=== PATIENT | male | born 1955 | race Caucasian/White ===

== ENCOUNTER → 2016-09-19 | Outpatient (CLI) | payer BC ==
--- NOTE | 2016-09-19 13:37 | XR ---
EXAMINATION TYPE: XR abdomen complete w decub DATE OF EXAM ORDERED: 09/19/2016 12:59 PM HISTORY: K59.0 Constipation. COMPARISON: None. FINDINGS: The abdominal gas pattern is within normal limits. There is no evidence of obstruction or free air. There are numerous phleboliths within the pelvis. There is a modest amount of stool within the right side of the colon. IMPRESSION: NO ACUTE INTRA-ABDOMINAL ABNORMALITY.
--- NOTE | 2016-09-19 13:38 | XR ---
EXAMINATION TYPE: XR chest 2V DATE OF EXAM: 09/19/2016 12:59 PM HISTORY: J44.9 COPD. REFERENCE: NONE. FINDINGS: There are innumerable tiny lung nodules on the right. These are quite dense and likely repr esent granulomas. The left lung is clear. Pleural spaces are clear. Heart size is within normal limit s. IMPRESSION: MULTIPLE RIGHT-SIDED PULMONARY NODULES. THESE LIKELY REPRESENTING GRANULOMAS. A CT SCAN OF THE CHEST WOULD BE SUGGESTED.
== END | disposition home or self-care (01) ==
LOC: EDSEX 12:20 → RADXRMAIN 12:20
PROVIDERS: ATTEND Family Medicine
DX: J91.8 Pleural effusion in other conditions classified elsewhere (principal); K59.00 Constipation, unspecified; J44.9 Chronic obstructive pulmonary disease, unspecified
CPT/HCPCS: 71020; 74020

== ENCOUNTER → 2016-10-25 | Outpatient (CLI) | payer BC ==
[~2016-10-25] MED LIST: REGADENOSON 0.4 MG/5 ML SYRINGE IV ONE
--- NOTE | 2016-10-25 12:01 | NM ---
EXAMINATION TYPE: NM stress lexiscan cardiolite DATE OF EXAM: 10/25/2016 11:53 AM COMPARISON: NONE HISTORY: Chest pain TECHNIQUE: After the intravenous administration of 9.52 mCi Tc 99m Sestamibi - Cardiolite resting SP ECT images acquired 45 minutes post injection. The patient received 0.4mg Lexiscan, 26.6 mCi Tc 99m Sestamibi - Stress images obtained [address] injection FINDINGS: Review of stress and rest SPECT images demonstrates no distinct perfusion abnormality. Gated analysi s shows normal wall motion with an estimated left ventricular ejection fraction of 63 %. IMPRESSION: No scintigraphic evidence for reversible ischemia.
--- NOTE | 2016-10-25 12:04 | EST ---
DATE OF SERVICE: 10/25/2016 AGE: 61Y SEX: M HT: 66" WT: 189 lbs. Lexiscan Cardiolite Stress Test *Heart Rate Blood Pressure *Rest: 76 Rest: 129/89 * *Max. Achieved: 83 Maximum BP: 130/87 85% PMHR: 136 100% PMHR: 160 *METS: - INDICATIONS: Abnormal ST. MEDICATIONS: Vitamin D, losartan, Chantix, aspirin, Toprol, fenofibrate. Patient came for a Cardiolite scan, unfortunately was not able to achieve the target heart rate. At that point he is converted him to Lexiscan and EKG shows normal sinus rhythm, normal ST-T waves but by the time we finished the stress test, patient does have [address] segment depression in the inferolateral leads. At that point, patient resumed Lexiscan and serial EKGs were done without any further changes in the ST segment noted without any symptoms. Patient completed the test without any symptoms. IMPRESSION: 1. Rhythm is sinus initially and Cardiolite stress test, patient had [address] segment depression without reaching the target heart rate and ( ) the Lexiscan without any further changes in ST segments and no symptoms reported. 2. Negative Lexiscan Cardiolite study. 3. With the ST segment changes as mentioned above without any changes. 4. Nuclear scintigrams to follow from Radiology Department.
== END ==
LOC: RADNMMAIN 08:47
PROVIDERS: ATTEND Family Medicine
DX: R07.9 Chest pain, unspecified (principal); R00.1 Bradycardia, unspecified
CPT/HCPCS: 93017; 78452; A9500

== ENCOUNTER → 2018-09-30 | Outpatient (CLI) | payer BC ==
--- NOTE | 2018-09-30 16:48 | CTL ---
EXAMINATION TYPE: CT Low Dose Lung DATE OF EXAM ORDERED: 09/30/2018 HISTORY: Lung cancer screening CT DLP: [address] CTDI: 2.6 mGy Automated exposure control for dose reduction was used. SCREENING VISIT: Initial COMPARISON: None TECHNIQUE: Low dose computed tomography scan was performed through the chest at 1 mm thick sections a nd reconstructed images in the coronal plane at [address] DIAGNOSTIC QUALITY: Limited, but interpretable FINDINGS: LUNG NODULES: None. LUNGS: COPD: Severity: None Fibrosis: Severity: None Lymph nodes: None Other findings: None RIGHT PLEURAL SPACE: Effusion: None Calcification: None Thickening: None Pneumothorax: None LEFT PLEURAL SPACE: Effusion: None Calcification: None Thickening: None Pneumothorax: None HEART: Heart Size: Normal Coronary calcification: None Pericardial effusion: None OTHER FINDINGS: Upper abdomen: Normal Bony thorax: Normal Supraclavicular region: Normal Other: Ascending thoracic aorta at the level of main pulmonary artery is 4.0 cm patent main pulmonary artery the bifurcation is 2.7 cm. IMPRESSION: Negative screening CT chest FOLLOW UP CT CHEST RECOMMENDATION: Follow-up low dose screening CT in one year CT LUNG RAD: Lung-Rad 1 Negative
== END | disposition home or self-care (01) ==
LOC: RADCTMAIN 12:03
PROVIDERS: ATTEND Family Medicine
DX: Z12.2 Encounter for screening for malignant neoplasm of respiratory organs (principal); Z87.891 Personal history of nicotine dependence

== ENCOUNTER → 2020-01-17 | Outpatient (CLI) | payer BC ==
--- NOTE | 2020-01-17 10:43 | CTL ---
EXAMINATION TYPE: CT Low Dose Lung DATE OF EXAM ORDERED: 01/17/2020 HISTORY: 64-year-old male with Z87.891, personal history of tobacco use. Lung cancer screening CT DLP: 112.[address] CTDI: 3.2 mGy Automated exposure control for dose reduction was used. SCREENING VISIT: First annual follow-up COMPARISON: 09/30/2018 TECHNIQUE: Low dose computed tomography scan was performed through the chest at 1 mm thick sections a nd reconstructed images in the coronal and sagittal plane. Coronal MIP reconstructions also generate d. CT DIAGNOSTIC QUALITY: Satisfactory FINDINGS: Heart normal size without pericardial effusion. Stable ectasia up to 3.9 cm of the ascending aorta as remeasured by the current radiologist. Mild aneurysm upper descending thoracic aorta 3.5 cm versus 3.3 cm, previously. Mild aneurysm lower descending thoracic aorta at 3.0 cm versus 2.9 cm, previously. Scattered nonenlarged mediastinal lymph nodes are unchanged. No thoracic lymphadenopathy by CT size c riteria. Mild diffuse bronchial wall thickening. No consolidation or pleural effusion. No suspicious pulmonary nodule or mass. Vague 3 mm subpleural nodule lateral left upper lobe axial image 51, unchanged. A couple 2 mm subpleural pulmonary nodules just above along the lateral left upper lobe, axial image 36 and 39, unchanged. Visualized upper abdomen shows hepatic steatosis with geographic areas of fatty sparing Bones: Anterior endplate spondylosis lower thoracic spine is unchanged. No osseous destructive proces s. IMPRESSION: 1. Lung RADS 2 - benign a few scattered punctate left upper lobe pulmonary nodules unchanged in retro spect. 2. Mild diffuse bronchial wall thickening can be seen with bronchitis or chronic asthma. 3. 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 Ectasia of the descending thoracic aorta measuring up to 3.5 cm versus 3.3 cm, previously. 4. Hepatic steatosis. RECOMMENDATION: 1. Continue annual low-dose lung cancer screening CT. 2. Smoking cessation. 3. Appropriate medical management of fatty liver. FOLLOW UP CT CHEST RECOMMENDATION: [address] LUNG RAD: Lung-Rad 2 Benign Appearance or Behavior
== END | disposition home or self-care (01) ==
LOC: RADCTMAIN 09:22
PROVIDERS: ATTEND Family Medicine
DX: Z12.2 Encounter for screening for malignant neoplasm of respiratory organs (principal); F17.210 Nicotine dependence, cigarettes, uncomplicated

== ENCOUNTER 2020-09-20 10:29 | Emergency (ER) | payer BC ==
[2020-09-20 11:11] VITALS: BP 163/93; PULSE 68; RESP 20; TEMP 98.7
--- NOTE | 2020-09-20 11:32 | XR ---
EXAMINATION TYPE: XR ankle complete RT DATE OF EXAM: 09/20/2020 COMPARISON: NONE HISTORY: Pain FINDINGS: Three views of the ankle demonstrate the ankle mortise to be intact and symmetric. There is soft tiss ue edema. There are tiny bony densities along the margin of the medial malleolus. Calcaneal spurs are noted. IMPRESSION: 1. Soft tissue edema. Correlate with point tenderness for tiny avulsion fracture medial malleolus.
[2020-09-20] MEDS ORDERED: IBUPROFEN 600 MG TAB PO STA (11:39)
--- NOTE | 2020-09-20 11:55 | ED ---
Lower Extremity Injury HPI - General Chief Complaint: Extremity Injury, Lower Stated Complaint: Ankle injury Time Seen by Provider: 09/20/20 11:14 Source: patient Mode of arrival: wheelchair Limitations: no limitations - History of Present Illness Initial Comments: Patient is a 65-year-old male presenting to the emergency Department with complaints of right ankle pain since yesterday. Patient states he was stepping out of his camper and rolled his ankle when he stepped onto the ground. He states today he continues to have swelling and pain and wanted to make sure he did not fracture it. He denies any previous injuries or fractures to the right lower extremity. He is able to ambulate with a slight limp. He denies any other injuries from this fall. He has no further complaints. - Related Data Allergies Allergy/AdvReac Type Severity Reaction Status Date / Time No Known Allergies Allergy Verified 09/20/20 11:11 Review of Systems ROS Statement: Those systems with pertinent positive or pertinent negative responses have been documented in the HPI. ROS Other: All systems not noted in ROS Statement are negative. Past Medical History Past Medical History: Diabetes Mellitus, Hyperlipidemia, Hypertension Additional Past Medical History / Comment(s): gout History of Any Multi-Drug Resistant Organisms: None Reported Past Surgical History: Orthopedic Surgery Additional Past Surgical History / Comment(s): rt knee Past Psychological History: No Psychological Hx Reported Smoking Status: Current every day smoker Past Alcohol Use History: Occasional Past Drug Use History: None Reported General Exam - General Exam Comments Initial Comments: GENERAL: Patient is well-developed and well-nourished. Patient is nontoxic and in no acute distress. HEAD: Atraumatic, normocephalic. EYES: Pupils equal round and reactive to light, extraocular movements intact, sclera anicteric, conjunctiva are normal. Eyelids were unremarkable. ENT: Nares patent, oropharynx clear without exudates. Moist mucous membranes. NECK: Normal range of motion, supple without lymphadenopathy or JVD. LUNGS: Unlabored respirations. Breath sounds clear to auscultation bilaterally and equal. No wheezes rales or rhonchi. HEART: Regular rate and rhythm without murmurs, rubs or gallops. ABDOMEN: Soft, nontender, normoactive bowel sounds. No guarding, no rebound. No masses appreciated. : Deferred MUSCULOSKELETAL: Patient has mild to moderate swelling of the right ankle, pain with palpation of the lateral malleolus. Neurovascular intact, slightly decreased active range of motion secondary to pain. Rest of extremities with adequate strength and normal range of motion, no pitting or edema. No clubbing or cyanosis. NEUROLOGICAL: Patient is alert and oriented x 3. Motor and sensory are also intact. Cranial nerves II through XII grossly intact. Symmetrical smile. Normal speech. PSYCH: Normal mood, normal affect. SKIN: Warm, Dry, normal turgor, no rashes or lesions noted. Limitations: no limitations Course Vital Signs 09/20/20 11:07 Temperature 98.7 F Pulse Rate 68 Respiratory 20 Rate Blood Pressure 163/93 O2 Sat by Pulse 99 Oximetry Medical Decision Making - Medical Decision Making Patient is a 65-year-old male here for right ankle pain after he rolled it yeste rday stepping out of his camper. No previous injuries or surgeries. X-ray reveals soft tissue edema, possible very tiny avulsion of the medial malleolus however patient does not seem to be tender in this area. Tenderness over the lateral malleolus. Discussed the patient is most likely an ankle sprain. Ice, ibuprofen, Tima wrap, he does have a home. I will send him home with an ankle stirrup splint. He is stable for discharge and he is in agreement this plan of care. Symptoms persist without improvement after 1-2 weeks, follow up with orthopedics. Case discussed with Dr. Babin. Disposition Clinical Impression: Moderate right ankle sprain Disposition: HOME SELF-CARE Condition: Stable Instructions (If sedation given, give patient instructions): Ankle Sprain (ED) Additional Instructions: Please return to the Emergency Department if symptoms worsen or any other concerns. Recommend ice, ibuprofen for discomfort. Tima wrap for compression swelling. If symptoms persist without improvement after one to 2 weeks, follow up with orthopedics. Is patient prescribed a controlled substance at d/c from ED?: No Referrals: Kemar Ayala MD [Primary Care Provider] - 1-2 days Veronika Mayes DO [Doctor of Osteopathic Medicine] - 1-2 days
== END 2020-09-20 12:10 | disposition home or self-care (01) ==
LOC: EC 10:29
DX: S93.401A Sprain of unspecified ligament of right ankle, initial encounter (principal); F17.200 Nicotine dependence, unspecified, uncomplicated; M10.9 Gout, unspecified; Z98.890 Other specified postprocedural states; X50.0XXA Overexertion from strenuous movement or load, initial encounter; Y93.A3 Activity, aerobic and step exercise; Y92.89 Other specified places as the place of occurrence of the external cause
CPT/HCPCS: 99283

== ENCOUNTER → 2023-11-20 | Outpatient (CLI) | payer MEDICARE ==
--- NOTE | 2023-11-20 10:32 | CTL ---
EXAMINATION TYPE: CT Low Dose Lung DATE OF EXAM: 11/20/2023 10:19 AM CLINICAL INDICATION:Male, 68 years old with history of F17.210 nicotine dependence; Hx nicotine depen miguel, 1 ppd x 30 years. , history of tobacco use. COMPARISON: 01/17/2020. TECHNIQUE: Multiple axial non-contrast scans were obtained from approximately the lung apices through the upper abdomen. Coronal and sagittal reformatted images were obtained. Low dose technique was uti lized. CT DLP: 135.20 mGycm, Automated exposure control for dose reduction was used. CT Contrast: Contrast used: None Oral contrast used: None FINDINGS: ======== Lack of intravenous contrast and low dose technique limits the evaluation of the vascular and soft ti ssue structures. LUNGS: No evidence of pulmonary fibrosis. No evidence of focal consolidation, pneumothorax or pleural effusion. Centrilobular emphysema changes. Nodules: RUL: None. RML: None. RLL: None. ALLY: None. LLL: None. AIRWAY: Patent and unremarkable. HEART: Size within normal limits. MEDIASTINUM: No gross evidence of adenopathy. VASCULATURE: No aortic aneurysm. MUSCULOSKELETAL: Mild disc degeneration changes are present throughout the thoracolumbar spine. Scoli osis changes of the spine. SOFT TISSUES/LYMPH NODES: Unremarkable. LOWER NECK: No significant findings. UPPER ABDOMEN: Diffuse low-attenuation to the liver parenchyma. IMPRESSION: 1. No clinically significant pulmonary nodules. 2. Mild emphysema. 3. Hepatic steatosis. CT LUNG RAD AND CT CHEST RECOMMENDATION: Lung-Rad 2 Benign Appearance or Behavior: Continue annual sc reening with LDCT in 12 months. S Modifier (other clinically significant findings): None Recommend smoking cessation (if current smoker), or continuation of smoking cessation (if prior smoke r). Annual screening for lung cancer with low-dose computed tomography is recommended in adults ages 55 to 77 years who have a 30 pack-year smoking history and currently smoke or have quit within the pa st 15 years. Screening should be discontinued once a person has not smoked for 15 years or develops a health problem that substantially limits life expectancy or the ability or willingness to have curat alfredo lung surgery. Lung rads 2021 [email or web address]
== END | disposition home or self-care (01) ==
LOC: RADCTMAIN 09:42
PROVIDERS: ATTEND Family Medicine
DX: Z12.2 Encounter for screening for malignant neoplasm of respiratory organs (principal); J43.2 Centrilobular emphysema; K76.0 Fatty (change of) liver, not elsewhere classified; F17.210 Nicotine dependence, cigarettes, uncomplicated
CPT/HCPCS: 71271

== ENCOUNTER → 2023-12-03 | Outpatient (CLI) | payer BC, MEDICARE ==
--- NOTE | 2023-12-03 17:25 | CA ---
Transthoracic Echo Report Name: Dameon Stover Age: 68 Gender: M : 1955 Exam Date: 12/03/2023 13:54 Exam Location: [facility] Ht (in): 66 Wt (lb): 190 Ordering Physician: Kemar Ayala MD Attending/Referring Phys: Compounding Technician Melita Guido RDCS Procedure CPT: Indications: R07.9 CHEST PAIN, UNSPECIFIED Cardiac Hx: Technical Quality: Contrast 1: Total Dose (mL): Contrast 2: Total Dose (mL): MEASUREMENTS (Male / Female) Normal Values 2D ECHO LV Diastolic Volume MOD BP 105.0 cm??? 67 - 155 / 56 - 104 cm??? LV Systolic Volume MOD BP 36.4 cm??? 22 - 58 / 19 - 49 cm??? LV Ejection Fraction MOD BP 65.3 % >= 55 % LV Diastolic Volume MOD 4C 120.7 cm??? LV Systolic Volume MOD 4C 36.2 cm??? LV Ejection Fraction MOD 4C 70.0 % LV Diastolic Length 4C 8.2 cm LV Systolic Length 4C 6.8 cm LV Diastolic Volume MOD 2C 89.7 cm??? LV Systolic Volume MOD 2C 34.4 cm??? LV Ejection Fraction MOD 2C 61.6 % LV Diastolic Length 2C 7.9 cm LV Systolic Length 2C 6.3 cm LA Volume 52.8 cm??? 18 - 58 / 22 - 52 cm??? LA Volume Index 26.0 cm???/m??? 16 - 28 cm???/m??? M-MODE Aortic Root Diameter MM 3.0 cm LA Systolic Diameter MM 4.1 cm LA Ao Ratio MM 1.3 AV Cusp Separation MM 2.0 cm DOPPLER AV Peak Velocity 145.0 cm/s AV Peak Gradient 8.4 mmHg AV Mean Velocity 117.9 cm/s AV Mean Gradient 6.8 mmHg AV Velocity Time Integral 38.2 cm AI Peak Velocity 375.0 cm/s AI Peak Gradient 56.3 mmHg AI Pressure Half Time 878.8 ms LVOT Peak Velocity 124.8 cm/s LVOT Peak Gradient 6.2 mmHg LVOT Velocity Time Integral 30.2 cm MV Area PHT 2.6 cm??? Mitral E Point Velocity 58.3 cm/s Mitral A Point Velocity 83.6 cm/s Mitral E to A Ratio 0.7 MV Deceleration Time 293.3 ms TR Peak Velocity 252.3 cm/s TR Peak Gradient 25.5 mmHg Right Ventricular Systolic Press 30.5 mmHg FINDINGS Left Ventricle Left ventricular ejection fraction is estimated at 60-65 %. Left ventricular cavity size normal. Normal left ventricular wall motion. Mildly increased left ventricular wall thickness. Right Ventricle Normal right ventricular size and function. Right ventricular systolic pressure within normal limits. Right Atrium Normal right atrial size. Left Atrium Normal left atrial size. Mitral Valve Structurally normal mitral valve. Trace mitral regurgitation. No mitral stenosis. Aortic Valve Trileaflet aortic valve. Diffuse thickening (sclerosis) of the aortic valve cusps without reduced excursion. Mild aortic regurgitation. Thickened aortic valve without stenosis. Tricuspid Valve Structurally normal tricuspid valve. Trace tricuspid regurgitation. Pulmonic Valve Structurally normal pulmonic valve. Trace pulmonic regurgitation. Pericardium No pericardial or pleural effusion. Aorta Normal size aortic root and proximal ascending aorta. CONCLUSIONS Normal LV function Aortic sclerosis with mild aortic regurgitation Previewed by: Dr. Anjel Vincent MD (Electronically Signed) Final Date: 03 December 2023 17:24
== END | disposition home or self-care (01) ==
LOC: RADECHMAIN 13:40
PROVIDERS: ATTEND Family Medicine
DX: I35.1 Nonrheumatic aortic (valve) insufficiency (principal); I35.8 Other nonrheumatic aortic valve disorders
CPT/HCPCS: 93306

== ENCOUNTER → 2024-12-14 | Outpatient (CLI) | payer MEDICARE ==
--- NOTE | 2024-12-14 13:43 | CTL ---
EXAMINATION TYPE: CT Low Dose Lung DATE OF EXAM ORDERED: 12/14/2024 COMPARISON: 11/20/2023 CLINICAL INDICATION: Male, 69 years old with history of Z12.2 LUNG CA SCR F17.210 CURRENT SMOKER; [facility] , CURRENT SMOKER 1 PPD X 40 YEARS, Lung cancer screening, History of Smoking/tobacco use. TECHNIQUE: Low dose computed tomography scan was performed through the chest at 1 mm thick sections a nd reconstructed images in multiple planes at 1 mm and [address] DLP: [address] CTDI: 1.91 mGy Automated exposure control for dose reduction was used. CT DIAGNOSTIC QUALITY: Satisfactory Findings: There are mild emphysematous changes. There are a few scattered stable micronodules. There is no lung consolidation or abnormal interstitial density. There is no pleural effusion or pneumothorax. The great vessels and heart are normal in size. There is no mediastinal, hilar or axillary adenopathy. Limited scanning through the upper abdomen reveals no gross abnormality. There are no focal osseous lesions. IMPRESSION: 1. Lung RADS category 2 benign. Continue routine screening at yearly intervals. 2. No acute cardiopu lmonary disease. 3. Mild emphysematous changes. [facility], , 12/14/2024 1:41 PM
== END | disposition home or self-care (01) ==
LOC: RADCTMAIN 13:03
PROVIDERS: ATTEND Family Medicine
DX: Z12.2 Encounter for screening for malignant neoplasm of respiratory organs (principal); F17.210 Nicotine dependence, cigarettes, uncomplicated; J43.9 Emphysema, unspecified
CPT/HCPCS: 71271